=== PATIENT | male | born 1960 | race Asian ===

== ENCOUNTER 2019-01-23 17:53 | Outpatient (CLI) | payer OTHER ==
[~2019-01-23 17:53] MED LIST: CIPRO500 MG PO; DIAZ5TAB20 PO; HYDR10TA47 PO
== END 2019-01-23 22:18 | disposition home or self-care (01) ==
LOC: RAD 17:53
DX: M25.511 Pain in right shoulder (principal)

== ENCOUNTER 2020-10-10 09:51 | Emergency (ER) | payer OTHER ==
[~2020-10-10] VITALS: Ht 195.6 cm; Wt 154.2 kg
[2020-10-10 11:14] LABS: PLATELET COUNT 281 K/uL (142-355)
[2020-10-10 13:25] VITALS: BP 142/63; TEMP 98.7
[2020-10-10] MEDS ORDERED: CLIN300C PO (13:43)
[2020-10-10] MEDS ORDERED: POTA10CA3 PO (13:45)
[2020-10-10] MEDS ORDERED: CYCL10TA35 PO (13:46)
[2020-10-10] MEDS ORDERED: ASCO500T18 PO (13:47)
== END 2020-10-10 13:25 | disposition home or self-care (01) ==
LOC: ED 09:51
PROVIDERS: Family Medicine
DX: L03.116 Cellulitis of left lower limb (principal); J06.9 Acute upper respiratory infection, unspecified; Z03.818 Encounter for observation for suspected exposure to other biological agents ruled out
CPT/HCPCS: 36415; 80053; 81000; 83605; 85027; 87040; 87070; 87077; 87186; 87205; 87635; 99283; J1580; U0003